=== PATIENT | male | born 1995 | race Two or more races ===

== ENCOUNTER 2019-06-25 02:31 | Emergency (ER) | payer BC ==
[~2019-06-25] VITALS: Ht 172.7 cm; Wt 86.2 kg
[2019-06-25] MEDS ORDERED: ACETAMINOPHEN ES 500 MG TABLET ONE (03:01)
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
[2019-06-25] MEDS: ACETAMINOPHEN 325 MG TABLET PO ONE (03:07)
--- NOTE | 2019-06-25 03:42 | NUR ---
BACK FROM CT ON HERSON
[2019-06-25 05:10] VITALS: BP 128/72
== END 2019-06-25 05:11 | disposition home or self-care (01) ==
LOC: ER 02:34
DX: S09.8XXA Other specified injuries of head, initial encounter (principal); R51 Headache; V49.59XA Passenger injured in collision with other motor vehicles in traffic accident, initial encounter; Y93.89 Activity, other specified; Y92.488 Other paved roadways as the place of occurrence of the external cause; Y99.8 Other external cause status
CPT/HCPCS: 70450-TC